=== PATIENT | female | born 1980 | race Caucasian/White ===

== ENCOUNTER 2016-12-07 11:33 | Emergency (ER) | payer SELFPAY ==
[2016-12-07] MEDS ORDERED: DICYCLOMINE HCL 10 MG/ML AMPUL IM ONE ×2 (12:02→12:08)
--- NOTE | 2016-12-07 12:20 | ERNOTE ---
Abdominal HPI - Narrative Date of Service: 12/07/16 - General Chief Complaint: Abdominal Pain Time Seen by Provider: 12/07/16 11:56 Source: patient Exam Limitations: no limitations - Immun/Allergies/Home Medications Immunizatons: IMMUNIZATION HX Immunizations Up to Date Yes History of Influenza Vaccine No Hx Pneumococcal Vaccination Yes Allergies/Adverse Reactions: Allergies No Known Allergies Allergy (Verified 12/07/16 11:50) Home Medications: HOME MEDICATIONS Ciprofloxacin HCl [Cipro] 500 mg PO BID #20 tab 12/07/16 [Last Taken Unknown] Dicyclomine HCl [Bentyl] 10 mg PO TID #30 capsule 12/07/16 [Last Taken Unknown] Levothyroxine Sodium [Synthroid] 25 mcg PO DAILY 12/07/16 [Last Taken Unknown] Omeprazole 40 mg PO DAILY 12/07/16 [Last Taken Unknown] metroNIDAZOLE [Flagyl] 500 mg PO Q8H #40 tablet 12/07/16 [Last Taken Unknown] - History of Present Illness Narrative: Pt. comes in with c/o LUQ abd pain that radiates to her lower abdomen for four days. Pt. states that she has chronic loose stools but today these have been worse today and she has had 8 stools since 0800 this morning. Pt. denies any SOB , CP, vomiting, fever, but has had these symptoms previously and has been diagnosed with colitis of some sort in the past. This colitis is not known to pt. as whether it was infective, Chrohns, or UC. Review of Systems - Review of Systems Constitutional: Present: no symptoms reported. Absent: fever, chills, weakness , fatigue, malaise EYE: Present: no symptoms reported ENT: Present: no symptoms reported Respiratory: Present: no symptoms reported. Absent: shortness of breath, cough , wheezing Cardiology: Present: no symptoms reported. Absent: chest pain, palpitations, edema Gastrointestinal/Abdominal: Present: nausea, diarrhea, abdominal pain - LUQ LLQ. Absent: vomiting Genitourinary: Present: no symptoms reported Musculoskeletal: Present: no symptoms reported. Absent: back pain, joint pain Skin: Present: no symptoms reported Neurological: Present: no symptoms reported Endocrine: Present: no symptoms reported Hematologic/Lymphatic: Present: no symptoms reported Psych: Present: no symptoms reported All Other Systems: All systems neg except as marked - Patient's Past Medical History Patient History - Medical: GERD, Hypothyroidism Patient History - Cardiac/Respiratory: No pertinent hx Patient History - Cancer: No Hx of Cancer Patient History - Surgical Procedures: Cholecystectomy, , Tubal Ligation, T & A Patient History - Other: None LMP (females 10-50): 1 month - Social History Living Situations: home Abuse History: No History of abuse Psych History: No pertinent hx Smoking Status: Current every day smoker Have you smoked in the past 12 months: Yes Alcohol Use: occasionally Drug Use: none - Immunizations Immunizations Up to Date: Yes Hx Pneumococcal Vaccination: Yes History of Influenza Vaccine: No Physical Exam - Physical Exam General Appearance: Present: wd/wn, alert, no apparent distress Eye Exam: Normal inspection: bilateral, PERRL: bilateral, EOMI: bilateral Ears, Nose, Throat: Present: normal ENT inspection, normal pharynx Neck: Present: normal inspection, nontender. Absent: lymphadenopathy (R), lymphadenopathy (L) Respiratory: Present: no respiratory distress, normal breath sounds, no accessory muscle use, chest nontender, lungs clear Cardiovascular/Chest: Present: regular rate, rhythm, no murmur, normal peripheral pulses Gastrointestinal/Abdominal: Present: normal bowel sounds, nondistended, soft, no organomegaly, tenderness - LUQ LLQ Back Exam: Present: normal inspection, normal range of motion, no CVA tenderness , no vertebral tenderness Extremity Exam: Present: normal inspection, non-tender, normal range of motion, no edema Neurological Exam: Present: alert, oriented, normal mood/affect, no motor/ sensory deficits, 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 Absent: pallor, skin rash ED Progress - Date and Time Seen: Date and Time: 12/07/16 16:[address] results with Dr Ibrahim for guidance on this pt. and he is coming in to look at the CT. 12/07/16 17:41 Dr Ibrahim recommended calling [facility] for direction. Discussed with Dr Park at [facility] and he recommends starting on Cipro and flagyl and send referral paperwork. - Results and Orders Patient's Lab Results:: I have reviewed the patient's lab results. - Vital Signs Patient's Vital Signs:: I have reviewed the patient's vital signs. Vital Signs: Vital Signs 12/07/16 11:46 Temperature 36.4 C L Pulse Rate 80 Respiratory 16 Rate Blood Pressure 140/72 O2 Sat by Pulse 100 Oximetry - CT/Ultrasound CT/Ultrasound Narrative: CT scan with multiple areas in the small bowel, hepatic flexure and prox. colon with inflammatory changes and focal inflammation. Pt. also with mesenteric lymphadenopathy. - Progress/Reassessment Chief Complaint: Abdominal Pain Departure - Departure Clinical Impression: Colitis, Mesenteric adenitis Condition: Good Instructions: Chronic Diarrhea, Colitis Additional Instructions: Please follow up with [facility]. Please call them if you do not get called with an appointment in 2-3 days. Referrals: Zoila Melendez ARNP [Primary Care Provider] - Prescriptions: Ciprofloxacin HCl [Cipro] 500 mg PO BID #20 tab Dicyclomine HCl [Bentyl] 10 mg PO TID #30 capsule metroNIDAZOLE [Flagyl] 500 mg PO Q8H #40 tablet
[2016-12-07 12:37] LABS: Hematocrit 40.7 % (37.0-47.0); Hemoglobin 13.6 gm/dL (12.5-16.0); Mean Cell Volume 92.1 fl (78-100); Mean Corpuscular Hemoglobin 30.8 pg (27-31); Mean Corpuscular Hgb Conc 33.4 g/dl (32-36); Mean Platelet Volume 10.2 fl (6.0-9.5); Neutrophil % 68.9 % (42-75.0); Platelet Count 332 K/mm3 (150-450); Red Blood Count 4.42 M/mm3 (4.2-5.4); Red Cell Distribution Width 13.5 % (11.5-14.0); White Blood Count 11.6 K/mm3 (4.0-10.5)
[2016-12-07 12:48] LABS: Urine Appearance Clear; Urine Bacteria None Seen; Urine Bilirubin Negative (NEGATIVE); Urine Blood Negative /ul (NEGATIVE); Urine Color Pale Yellow; Urine Ketone Negative (NEGATIVE); Urine Nitrite Negative (NEGATIVE); Urine Protein Negative (NEGATIVE); Urine RBC None Seen /hpf (0-5); Urine Urobilinogen Normal (NORMAL); Urine WBC None Seen /hpf (0-5)
[2016-12-07 12:56] LABS: Anion Gap 14.9 mmol/L (6.8-13.8); BUN/Creatinine Ratio 7.1 (9.0-21.6); Bilirubin, Total 0.7 mg/dL (0.0-1.1); Ca. Corrected For Albumin 9.1 mg/dL (8.4-10.2); Calcium * 9.4 mg/dL (7.9-10.9); Carbon Dioxide 26.7 mmol/L (24-32.6); Potassium 3.6 mmol/L (3.4-4.6); T4 Free * 1.17 ng/dL (0.76-1.46); TSH * 1.116 uIU/mL (0.358-3.74); Total Protein 7.8 gm/dL (6.2-8.2)
[2016-12-07] MEDS ORDERED: DIATRIZOATE MEGLUMINE, SODIUM 30 ML BTL ONE (14:09)
[2016-12-07] MEDS ORDERED: KETOROLAC TROMETHAMINE 30 MG/ML VIAL IV ONE (14:37)
[2016-12-07] MEDS ORDERED: KETOROLAC TROMETHAMINE 60 MG/2 ML VIAL IM ONE (14:37)
[2016-12-07] MEDS ORDERED: KETOROLAC TROMETHAMINE 30 MG/ML VIAL ONE (14:43)
[2016-12-07] MEDS ORDERED: metroNIDAZOLE 500 MG TABLET PO ONE (18:04)
[2016-12-07] MEDS ORDERED: CIPROFLOXACIN HCL 250 MG TABLET PO ONE (18:04)
[2016-12-07] MEDS ORDERED: CIPROFLOXACIN HCL 250 MG TABLET ONE (18:10)
[2016-12-07] MEDS ORDERED: metroNIDAZOLE 500 MG TABLET ONE (18:10)
[2016-12-07 18:17] VITALS: BP 131/73
== END 2016-12-07 18:16 | disposition home or self-care (01) ==
LOC: ER 11:33
DX: K52.9 Noninfective gastroenteritis and colitis, unspecified (principal); I88.0 Nonspecific mesenteric lymphadenitis; F17.200 Nicotine dependence, unspecified, uncomplicated; K21.9 Gastro-esophageal reflux disease without esophagitis; E03.9 Hypothyroidism, unspecified